=== PATIENT | female | born 1965 | race Caucasian/White ===

== ENCOUNTER 2025-02-03 15:15 | Outpatient (RCR) | payer OTHER, SELFPAY ==
--- NOTE | 2024-12-10 15:42 | OPREHPOC ---
Outpatient Therapy Plan of Care This is a Multidisciplinary Plan of Care that may contain components documented by all disciplines (PT, OT, and ST.) PT Problem 1 PT Problem #1 Knowledge Deficit PT Goal 1 Goal / Goal Update 1. Pt to be IND with issued HEP. Target Visit 8 PT Problem 2 PT Problem #2 Impaired Range of Motion PT Goal 1 Goal / Goal Update 1. pt to improve luz [place] hip ext rot ROM to 45 deg luz [place] 2. pt to improve [place]uz [place] hip ext ROM to 10 deg to improve stride length with ambulation Target Visit 8 PT Problem 3 PT Problem #3 Impaired Strength PT Goal 1 Goal / Goal Update 1. Pt to improve global hip strength to grossly 4+ /5 PT Problem 4 PT Problem #4 Impaired Gait PT Goal 1 Goal / Goal Update 1. Pt to demonstrate an equal stride length during ambulation Target Visit 8
--- NOTE | 2024-12-10 15:42 | PTOPEVAL1 ---
Assessment and note entered by Elizabeth Laird, PT, DPT Evaluation Information Assessment Status Evaluation Diagnosis L knee pain ICD-10 Condition Codes (PT) Pain in left knee M25.562 Subjective Information Pt states in the past she hurt her knee playing volleyball. States she will frequently twist her knees and cause a flair up. States she is not having any pain currently but feels like her legs are wobbly. Is going on a vacation soon and is fearful of falling. States she is getting hip pain at time d/t the way she walks. States her knees have been wobbly for a couple of years now. Reported Pain Level Pain Score 0: Self Report Assessment PT Clinical Summary Pt presents to therapy today for her initial evaluation with a diagnosis of R knee pain. Today she demonstrates a signficant decrease in hip ROM in all planes of motion. Her ROM deficits do not allow her to have a typical gait pattern, she ambulates with a crouched pattern without any terminal knee or hip extension and has accessory anterior/posterior hip motion to compensate. Her hip strength is decreased as well. Skilled therapy services are indicated to address the deficits noted above, to improve ROM needed for functional mobility, and to return PLOF. Plan of Care Interventions Electrical Stimulation,Gait Training,Hot Pack/Cold Pack,Manual Therapy,Neuro Re-education,Patient/ Caregiver Education,Therapeutic Activities, Therapeutic Exercise PT Services Indicated Yes Treatment Frequency and 2x/wk for 8 visits Duration These treatments will address the objective and functional deficits as defined above. The patient will be advanced safely and appropriately in order for the patient to progress towards his/her prior level of function. Additional exercises will be introduced and as well as a comprehensive home exercise program upon discharge, if needed, ?to ensure carryover of functional gains achieved in the clinic. This treatment plan has been reviewed and agreement upon by the patient.
--- NOTE | 2025-02-03 16:19 | OPREHPOC ---
Outpatient Therapy Plan of Care This is a Multidisciplinary Plan of Care that may contain components documented by all disciplines (PT, OT, and ST.) PT Problem 1 PT Problem #1 Knowledge Deficit PT Goal 1 Goal / Goal Update 1. Pt to be IND with issued HEP. Target Visit 8 Progress Met PT Problem 2 PT Problem #2 Impaired Range of Motion PT Goal 1 Goal / Goal Update 1. pt to improve [place]uz [place] hip ext rot ROM to 45 deg luz [place] 2. pt to improve [place]uz [place] hip ext ROM to 10 deg to improve stride length with ambulation Target Visit 8 Progress Met PT Problem 3 PT Problem #3 Impaired Strength PT Goal 1 Goal / Goal Update 1. Pt to improve global hip strength to grossly 4+ /5 Progress Not Met PT Problem 4 PT Problem #4 Impaired Gait PT Goal 1 Goal / Goal Update 1. Pt to demonstrate an equal stride length during ambulation Target Visit 8 Progress Not Met
--- NOTE | 2025-02-03 16:19 | PTOPDC ---
Assessment and note entered by Alcon Cole, PT Evaluation Information Assessment Status Discharge Diagnosis L knee pain ICD-10 Condition Codes (PT) Pain in left knee M25.562 Subjective Information Reports that overall she has taken a break from exercising over the past week but she feels she has improved,. She is understanding that some of her problems have been brought on by inactivity. Reported Pain Level Pain Score 0: Self Report Assessment PT Clinical Summary Patient has improved hip mobility at this time and met all knee ROM goals. 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 Will be discharged at this time to [facility]. Plan of Care PT Services Indicated Yes
== END 2025-02-04 08:40 | disposition home or self-care (01) ==
LOC: ANHGOSHPT 15:15
PROVIDERS: PCP Family Medicine; Visit Provider Nurse Practitioner Family
DX: M25.561 Pain in right knee (principal)
CPT/HCPCS: 97110; 97140; 97161; 97530